=== PATIENT | male | born 1975 | race Caucasian/White ===

== ENCOUNTER 2021-07-17 07:03 | Emergency (ER) | payer OTHER ==
[2021-07-17] MEDS ORDERED: NAPROXEN500 MG PO (12:31)
[2021-07-17] MEDS ORDERED: MEDROL 4MG DOSEP4 MG PO (12:31)
[2021-07-17] MEDS ORDERED: ROBAXIN750 MG PO (12:31)
== END 2021-07-17 12:51 | disposition home or self-care (01) ==
LOC: FER 07:03
DX: S30.860A Insect bite (nonvenomous) of lower back and pelvis, initial encounter (principal); I10 Essential (primary) hypertension; F17.210 Nicotine dependence, cigarettes, uncomplicated; W57.XXXA Bitten or stung by nonvenomous insect and other nonvenomous arthropods, initial encounter
CPT/HCPCS: 72131